=== PATIENT | male | born 1985 | race Caucasian/White ===

== ENCOUNTER 2018-05-18 23:03 | Emergency (ER) | payer SELFPAY ==
[~2018-05-18] VITALS: Ht 180.3 cm; Wt 110.7 kg
[2018-05-18 23:04] VITALS: BP 156/79
== END 2018-05-19 00:49 | disposition home or self-care (01) ==
LOC: ED 23:59
DX: F20.9 Schizophrenia, unspecified (principal); Z72.9 Problem related to lifestyle, unspecified; F17.200 Nicotine dependence, unspecified, uncomplicated
CPT/HCPCS: 99284